=== PATIENT | female | born 1950 | race Caucasian/White ===

== ENCOUNTER 2020-02-29 12:09 | Inpatient (IN) ==
[2020-02-29] MEDS ORDERED: MORPHINE SULFATE 2 MG/ML DISP.SYRIN IV ONE (12:12)
[2020-02-29] MEDS ORDERED: ONDANSETRON HCL/PF 2 MG/ML VIAL IV ONE (12:12)
[2020-02-29] MEDS ORDERED: MORPHINE SULFATE 4 MG/ML SYRG IV ONE (13:17)
--- NOTE | 2020-02-29 13:18 | ERNOTE ---
Lower Extremity HPI - Narrative Date of Service: 02/29/20 - General Lower Extremities Pain: hip: left Time Seen by Provider: 02/29/20 12:12 Source: patient Exam Limitations: no limitations - Immun/Allergies/Home Medications Immunizations: IMMUNIZATION HX Immunizations Up to Date Yes History of Influenza Vaccine Yes Hx Pneumococcal Vaccination Yes Allergies/Adverse Reactions: Allergies Allergy/AdvReac Type Severity Reaction Status Date / Time No Known Allergies Allergy Unverified 02/29/20 12:17 Home Medications: HOME MEDICATIONS Albuterol Sulfate [Albuterol Sulfate Hfa] 8.5 gm INHALATION PRN PRN 02/29/20 [Last Taken Unknown] Aspirin 81 mg PO DAILY 02/29/20 [Last Taken Unknown] Cyanocobalamin [Vitamin B-12] 1,000 mcg IJ . MONTHLY 02/29/20 [Last Taken Unknown] Denosumab [Prolia] 60 mg SQ .6 MONTHS 02/29/20 [Last Taken Unknown] Exenatide [Byetta] 10 mcg SQ BID 02/29/20 [Last Taken Unknown] Fexofenadine HCl [Avril Allergy] 180 mg PO DAILY 02/29/20 [Last Taken Unknown] Losartan Potassium 100 mg PO DAILY 02/29/20 [Last Taken Unknown] Magnesium Oxide [Magnesium] 500 mg PO DAILY 02/29/20 [Last Taken Unknown] Montelukast Sodium [Singulair] 10 mg PO DAILY 02/29/20 [Last Taken Unknown] Naproxen Sodium 220 mg PO BID 02/29/20 [Last Taken Unknown] metFORMIN HCL [Metformin HCl ER] 750 mg PO DAILY 02/29/20 [Last Taken Unknown] - Pain Score Pain Score #1 Pain Score: 9 - History of Present Illness Narrative: The patient is a 69 year old female who presents for left hip pain which has been present since just [employer]. There are no associated symptoms. The patient reports pain to left hip, 05/24. There are alleviating factors of immobilization. There are aggravating factors of movement or weight bearing. Previous treatments have included: none. The past medical history includes: seasonal asthma, DM and pernicious anemia. The social history is negative. The patient has had no known ill contacts. Patient states she is here visiting from [place] with a friend and was down at the [employer] sightseeing. Patient states she was on the [employer] [place] and attempted to step down off of car missing the curb and lost her balance falling on left hip and elbow. Patient denies striking head, LOC or neck pain. Patient brought in by [facility]. Review of Systems - Review of Systems Constitutional: Present: no symptoms reported. Absent: fever, chills, fatigue EYE: Present: no symptoms reported ENT: Present: no symptoms reported. Absent: ear pain, nasal drainage, sore throat Respiratory: Present: no symptoms reported. Absent: shortness of breath, cough Cardiology: Present: no symptoms reported. Absent: chest pain Gastrointestinal/Abdominal: Present: no symptoms reported. Absent: nausea, vomiting, diarrhea, abdominal pain Genitourinary: Present: no symptoms reported. Absent: dysuria Musculoskeletal: Present: joint pain. Absent: neck pain, joint swelling Skin: Present: no symptoms reported. Absent: rash Neurological: Present: no symptoms reported. Absent: headache, dizziness/light- headedness All Other Systems: All systems neg except as marked Medical History (Last Reviewed 02/29/20 @ 13:17 by SKYE Mueller) Hx of fracture of lower leg Pernicious anemia Seasonal asthma Type II diabetes mellitus Surgical History: Surgical History (Last Reviewed 02/29/20 @ 13:17 by SKYE Mueller) Hx of rotator cuff surgery Hx of total knee replacement Social History: (Last Reviewed 02/29/20 @ 13:17 by SKYE Mueller) Tobacco: Smoking Status: Never smoker Alcohol: alcohol intake: never Substance Use: substance use type: does not use Physical Exam - Physical Exam General Appearance: Present: wd/wn, alert, moderate distress Head Exam: Present: normal inspection, no evidence of injury Eye Exam: Normal inspection: bilateral, PERRL: bilateral, EOMI: bilateral Neck: Present: normal inspection, nontender, full range of motion Respiratory: Present: no respiratory distress, normal breath sounds, no accessory muscle use, chest nontender, lungs clear Cardiovascular/Chest: Present: regular rate, rhythm, no murmur, normal peripheral pulses Peripheral Pulses: N=norm/S=strong/W=weak/B=bound/A=absent: Dorsalis-pedis (L): Normal Gastrointestinal/Abdominal: Present: normal bowel sounds, nontender, no ndistended, soft, no organomegaly Extremity Exam: Present: normal range of motion - to left ankle and pain to left hip with movement of knee, normal ROM to left wrist, elbow and shoulder, no edema, pelvis stable, bony tenderness - proximal femur, lateral hip with palpation Neurological Exam: Present: alert, oriented, normal mood/affect, no motor/se nsory deficits Skin Exam: Present: normal color, warm/dry, other - abrasion noted to posterior elbow and anterior knee Progress - Date and Time Seen: Date and Time: 02/29/20 13:18 Images sent to Paul ALONZO via [facility], will admit to medicine and consult for surgery planned tomorrow. 02/29/20 13:24 Case discussed with and will admit to medicine for orthopedic clearance. Patient verbalized understanding of plan of care. 02/29/20 14:22 Labs and imaging reviewed with patient as well as plan of care, verbalized understanding. Patient inquiring regarding length of stay and instructed ortho will direct care following surgery. - Results and Orders Patient's Lab Results:: I have reviewed the patient's lab results. - Vital Signs Patient's Vital Signs:: I have reviewed the patient's vital signs. Vital Signs: Vital Signs 02/29/20 12:10 Temperature 37.0 C Pulse Rate 84 Respiratory Rate 20 Blood Pressure 146/61 O2 Sat by Pulse Oximetry 98 - EKG EKG #1 EKG: NSR EKG read: Reviewed by me EKG Comments: No acute ischemic change noted. Reviewed with . - X-Ray X-Ray #1 X-Ray: hip Interpretation: Reviewed by me X-ray Comments: IMPRESSION: COMMINUTED INTERTROCHANTERIC FRACTURES LEFT HIP WITH MINIMAL ANGULATION. Electronically signed by Daquan Rasmussen M.D.. X-Ray #2 X-Ray: chest Interpretation: Reviewed by me X-ray Comments: IMPRESSION: NO ACUTE CARDIAC PULMONARY DISEASE IDENTIFIED. Electronically signed by Daquan Rasmussen M.D.. - Progress/Reassessment Chief Complaint: Lower Extremity Pain/ Injury Departure Clinical Impression: Intertrochanteric fracture of left femur Qualifiers: Encounter type: initial encounter Fracture type: closed Fracture alignment: displaced Qualified Code(s): S72.142A - Displaced intertrochanteric fracture of left femur, initial encounter for closed fracture - Departure Disposition: Still a patient Condition: Stable
[2020-02-29] MEDS ORDERED: DIPHTH,PERTUSS(ACELL),TET VAC 0.5 ML VIAL IM ONE (13:19)
[2020-02-29 13:38] LABS: Hematocrit 36.1 % (37.0-47.0); Hemoglobin 11.7 gm/dL (12.5-16.0); Mean Cell Volume 92.6 fl (78-100); Mean Corpuscular Hgb Conc 32.4 g/dl (32-36); Mean Platelet Volume 8.9 fl (8-12.5); Neutrophil % 76.3 % (42-75.0); Platelet Count 259 K/mm3 (150-450); Red Cell Distribution Width 13.1 % (11.5-14.0); White Blood Count 9.2 K/mm3 (4.0-10.5)
[2020-02-29 14:09] LABS: Albumin * 4.1 gm/dl (3.4-5.0); Anion Gap 10.7 mmol/L (6.8-13.8); BUN/Creatinine Ratio 31.6 (9.0-21.6); Bilirubin, Total 0.3 mg/dL (0.0-1.1); Ca. Corrected For Albumin 9.5 mg/dL (8.4-10.2); Calcium * 9.9 mg/dL (7.9-10.9); Carbon Dioxide 27.4 mmol/L (24-32.6); Potassium 4.1 mmol/L (3.4-4.6); Total Protein 7.8 gm/dL (6.2-8.2)
--- NOTE | 2020-02-29 15:19 | HP ---
Chief Complaint - Chief Complaint Date of Service: 02/29/20 Time of Service: 14:53 Chief Complaint: Left hip pain History of Present Illness: 69-year-old female with a past medical history of seasonal asthma, type 2 diabetes mellitus, pernicious anemia, hyperlipidemia, hypertension presents status post fall with left hip pain. She was found to have a comminuted intertrochanteric fracture of the left hip. Orthopedic was consulted and will take her to the right operating room tomorrow. She denies chest pain, shortness of breath, abdominal pain, palpitations or dizziness. Medical History (Last Reviewed 02/29/20 @ 14:56 by Alberto Duvall RN) Hx of fracture of lower leg Pernicious anemia Seasonal asthma Type II diabetes mellitus Surgical History: Surgical History (Last Reviewed 02/29/20 @ 14:56 by Alberto Duvall RN) Hx of rotator cuff surgery Hx of total knee replacement Family History: Family History (Last Updated 02/29/20 @ 18:11 by Nadine Vidales MD) Other Family history non-contributory Social History: (Last Reviewed 02/29/20 @ 14:56 by Alberto Duvall RN) Tobacco: Smoking Status: Never smoker Alcohol: alcohol intake: never Substance Use: substance use type: does not use Review Of Systems (GEN) - Review of Systems Generalized/Overall Review: Absent: Fever EENTM: Absent: Mouth Pain Cardiac: Absent: Chest Pain Abdominal: Absent: Abdominal Pain Musculoskeletal: Present: Joint Pain - Left hip Misc: All systems neg except as marked Immunizations: IMMUNIZATION HX Immunizations Up to Date Yes History of Influenza Vaccine Yes Hx Pneumococcal Vaccination Yes Allergies/Adverse Reactions: Allergies Allergy/AdvReac Type Severity Reaction Status Date / Time No Known Allergies Allergy Unverified 02/29/20 12:17 Home Medications: HOME MEDICATIONS Acetaminophen [Tylenol] 1,000 mg PO Q6H PRN 02/29/20 [Last Taken Unknown] Albuterol Sulfate [Albuterol Sulfate Hfa] 8.5 gm INHALATION PRN PRN 02/29/20 [Last Taken Unknown] Aspirin 81 mg PO DAILY 02/29/20 [Last Taken Unknown] Cyanocobalamin [Vitamin B-12] 1,000 mcg IJ . MONTHLY 02/29/20 [Last Taken Unknown] Denosumab [Prolia] 60 mg SQ .6 MONTHS 02/29/20 [Last Taken Unknown] Exenatide [Byetta] 10 mcg SQ BID 02/29/20 [Last Taken Unknown] Fexofenadine HCl [Avril Allergy] 180 mg PO 199902/29/20 [Last Taken Unknown] Losartan Potassium 100 mg PO 199902/29/20 [Last Taken Unknown] Magnesium Oxide [Magnesium] 500 mg PO 199902/29/20 [Last Taken Unknown] Montelukast Sodium [Singulair] 10 mg PO DAILY 02/29/20 [Last Taken Unknown] metFORMIN HCL [Metformin HCl ER] 750 mg PO 199902/29/20 [Last Taken Unknown] Exam - Exam Vital Signs: Vital Signs - Last Taken Temp 37.3 C 02/29/20 14:42 Pulse 87 02/29/20 14:42 Resp 16 02/29/20 14:42 BP 151/51 H 02/29/20 14:42 Pulse Ox 94 02/29/20 14:42 Constitutional: Present: Alert, Cooperative, Well developed, Well nourished, Elderly ENT Exam: Present: hearing grossly normal, moist mucous membranes Eye Exam: bilateral eye: normal inspection, PERRL, EOMI Neck: Present: non-tender, supple. Absent: lymphadenopathy (R), lymphadenopathy (L) Respiratory: Present: lungs clear, no respiratory distress, no accessory muscle use, No wheezing. Absent: crackles, rhonchi Cardiovascular/Chest: Present: normal peripheral pulses, regular rate, rhythm, no edema, no murmur Peripheral Pulses: dorsalis-pedis (R): 1+, dorsalis-pedis (L): 1+ Abdomen: Present: Normal bowel sounds, soft, nontender /Rectal: Present: Other - Alarcon in place Extremity: Present: non-tender, no pedal edema, other - Left hip externally rotated Skin Exam: Present: normal color, warm/dry Neurologic: Present: alert, normal mood/affect Appearance: Present: appropriate appearance, appropriate insight Eye contact: Present: cooperative, good eye contact Thoughts: Present: normal thought pattern, normal mood /affect Diagnostic Studies: Abnormal Lab Results 02/29/20 02/29/20 Range/Units 13:35 13:35 RBC 3.90 L (4.2-5.4) M/mm3 Hgb 11.7 L (12.5-16.0) gm/dL Hct 36.1 L (37.0-47.0) % Immature Gran % (Auto) 0.70 H (0.001-0.429) % Immature Gran # (Auto) 0.06 H (0.000-0.0310) K/mm3 Neutrophils % 76.3 H (42-75.0) % Lymphocytes % 16.6 L (20-51) % Neutrophils # 7.0 H (1.3-6.0) K/mm3 BUN 30 H (3-23) mg/dL BUN/Creatinine Ratio 31.6 H (9.0-21.6) Random Glucose 124 H (70-110) mg/dL Laboratory Results WBC 9.2 K/mm3 (4.0-10.5) 02/29/20 13:35 RBC 3.90 M/mm3 (4.2-5.4) L 02/29/20 13:35 Hgb 11.7 gm/dL (12.5-16.0) L 02/29/20 13:35 Hct 36.1 % (37.0-47.0) L 02/29/20 13:35 MCV 92.6 fl (78-100) 02/29/20 13:35 MCH 30.0 pg (27-31) 02/29/20 13:35 MCHC 32.4 g/dl (32-36) 02/29/20 13:35 RDW 13.1 % (11.5-14.0) 02/29/20 13:35 Plt Count 259 K/mm3 (150-450) 02/29/20 13:35 MPV 8.9 fl (8-12.5) 02/29/20 13:35 Immature Gran % (Auto) 0.70 % (0.001-0.429) H 02/29/20 13:35 Immature Gran # (Auto) 0.06 K/mm3 (0.000-0.0310) H 02/29/20 13:35 Neutrophils % 76.3 % (42-75.0) H 02/29/20 13:35 Lymphocytes % 16.6 % (20-51) L 02/29/20 13:35 Monocytes % 5.8 % (0.0-9) 02/29/20 13:35 Eosinophils % 0.3 % (0.0-3.0) 02/29/20 13:35 Basophils % 0.3 % (0.0-1.0) 02/29/20 13:35 Nucleated RBC % 0.0 k/mm3 (0-1) 02/29/20 13:35 Neutrophils # 7.0 K/mm3 (1.3-6.0) H 02/29/20 13:35 Lymphocytes # 1.52 k/mm3 (1.5-3.5) 02/29/20 13:35 Monocytes # 0.5 k/mm3 (0.0-1.0) 02/29/20 13:35 Eosinophils # 0.0 k/mm3 (0.0-0.7) 02/29/20 13:35 Absolute Basophils 0.0 k/mm3 (0.0-0.1) 02/29/20 13:35 Sodium 139 mmol/L (132-142) 02/29/20 13:35 Plasma Sodium 139 mmol/L (130-142) 02/29/20 13:35 Potassium 4.1 mmol/L (3.4-4.6) 02/29/20 13:35 Chloride 105 mmol/L (97-106) 02/29/20 13:35 Carbon Dioxide 27.4 mmol/L (24-32.6) 02/29/20 13:35 Anion Gap 10.7 mmol/L (6.8-13.8) 02/29/20 13:35 BUN 30 mg/dL (3-23) H 02/29/20 13:35 Creatinine 0.95 mg/dL (0.4-1.4) 02/29/20 13:35 Est GFR (Non-Af Amer) 62 mL/min (60-130) 02/29/20 13:35 BUN/Creatinine Ratio 31.6 (9.0-21.6) H 02/29/20 13:35 Random Glucose 124 mg/dL (70-110) H 02/29/20 13:35 Calcium 9.9 mg/dL (7.9-10.9) 02/29/20 13:35 Calcium Adj for Albumin 9.5 mg/dL (8.4-10.2) 02/29/20 13:35 Total Bilirubin 0.3 mg/dL (0.0-1.1) 02/29/20 13:35 AST 27 U/L (0-48) 02/29/20 13:35 ALT 26 U/L (19-67) 02/29/20 13:35 Alkaline Phosphatase 60 U/L (50-170) 02/29/20 13:35 Total Protein 7.8 gm/dL (6.2-8.2) 02/29/20 13:35 Albumin 4.1 gm/dl (3.4-5.0) 02/29/20 13:35 Assessment/Plan - Narrative Narrative: 69-year-old female with a past medical history of seasonal asthma, type 2 diabetes mellitus, pernicious anemia, hyperlipidemia, hypertension presents status post fall with left hip pain. She was found to have a comminuted intertrochanteric fracture of the left hip. Orthopedic was consulted and will take her to the right operating room tomorrow. She denies chest pain, shortness of breath, abdominal pain, palpitations or dizziness. Patient is medically cleared for the left hip repair. Plan #1 continue with pain management #2 CBC and CMP in the morning #3 Hold morning meds except for her blood pressure medication if she takes it in the morning #4 n.p.o. after midnight - Assessment/Plan (1) Intertrochanteric fracture of left femur Problem: Acute Qualifiers: Encounter type: initial encounter Fracture type: closed Fracture alig nment: displaced Qualified Code(s): S72.142A - Displaced intertrochanteric fracture of left femur, initial encounter for closed fracture (2) Diabetes mellitus type 2 in nonobese Problem: Chronic (3) Hypertension Problem: Chronic (4) Hyperlipidemia Problem: Chronic (5) Asthma Problem: Chronic
[2020-02-29] MEDS: MORPHINE SULFATE 4 MG/ML SYRG IV PRN ×2 (16:27→21:37)
[2020-02-29] MEDS ORDERED: ALBUTEROL SULFATE 2.5 MG/0.5 ML VIAL.NEB IH PRN (19:15)
[2020-02-29] MEDS: EXENATIDE 10 MCG SC SCH (19:42)
[2020-02-29] MEDS ORDERED: LORATADINE 10 MG TABLET PO SCH (20:00)
[2020-02-29] MEDS ORDERED: metFORMIN HCL 750 MG TAB.SR.24H PO SCH (20:00)
[2020-02-29] MEDS ORDERED: LOSARTAN POTASSIUM 50 MG TABLET PO SCH (20:00)
[2020-03-01] MEDS: MORPHINE SULFATE 4 MG/ML SYRG IV PRN ×3 (03:00→10:02)
[2020-03-01] MEDS ORDERED: ALBUTEROL SULFATE 2.5 MG/0.5 ML VIAL.NEB IH PRN (06:30)
[2020-03-01 06:47] LABS: Hemoglobin 11.5 gm/dL (12.5-16.0); Mean Cell Volume 91.1 fl (78-100); Mean Corpuscular Hemoglobin 29.9 pg (27-31); Mean Corpuscular Hgb Conc 32.9 g/dl (32-36); Mean Platelet Volume 8.8 fl (8-12.5); Neutrophil # 5.9 K/mm3 (1.3-6.0); Neutrophil % 68.6 % (42-75.0); Platelet Count 239 K/mm3 (150-450); Red Blood Count 3.84 M/mm3 (4.2-5.4); Red Cell Distribution Width 12.9 % (11.5-14.0); White Blood Count 8.6 K/mm3 (4.0-10.5)
[2020-03-01 07:03] LABS: Albumin * 3.7 gm/dl (3.4-5.0); Anion Gap 11.8 mmol/L (6.8-13.8); BUN/Creatinine Ratio 21.8 (9.0-21.6); Bilirubin, Total 0.7 mg/dL (0.0-1.1); Ca. Corrected For Albumin 8.9 mg/dL (8.4-10.2); Potassium 3.8 mmol/L (3.4-4.6); Total Protein 7.3 gm/dL (6.2-8.2)
[2020-03-01] MEDS: EXENATIDE 10 MCG SC SCH ×2 (07:23→16:21)
--- NOTE | 2020-03-01 08:07 | CONS ---
- Reason for consultation (1) Intertrochanteric fracture of left femur Date of Service: 03/01/20 HPI - General Date of Service: 03/01/20 Narrative: Miranda reports that she was down from [place] on a day trip when she fell missing a step on train. She reports left hip and thigh discomfort. She reports no pain in the knee or below her left side. The only other injuries that she complains of is that her left shoulder is a little sore and some abrasions on her left forearm. She has a history of a knee replacement on the left side but reports it feels fine and does not feel she injured it. She reports she had a right-sided rotator cuff repair in July 2019 that she is recovering from without difficulty. - History of Present Illness Timing/Duration: 24 hours Allergies/Adverse Reactions: Allergies No Known Allergies Allergy (Unverified 02/29/20 12:17) Home Medications: Home Medications Medication Instructions Recorded Last Taken Acetaminophen [Tylenol] 1,000 mg PO Q6H PRN 02/29/20 Unknown Albuterol Sulfate [Albuterol 8.5 gm INHALATION PRN PRN 02/29/20 Unknown Sulfate Hfa] Aspirin 81 mg PO DAILY 02/29/20 Unknown Cyanocobalamin [Vitamin B-12] 1,000 mcg IJ . MONTHLY 02/29/20 Unknown Denosumab [Prolia] 60 mg SQ .6 MONTHS 02/29/20 Unknown Exenatide [Byetta] 10 mcg SQ BID 02/29/20 Unknown Fexofenadine HCl [Avril Allergy] 180 mg PO 199902/29/20 Unknown Losartan Potassium 100 mg PO 199902/29/20 Unknown Magnesium Oxide [Magnesium] 500 mg PO 199902/29/20 Unknown Montelukast Sodium [Singulair] 10 mg PO DAILY 02/29/20 Unknown metFORMIN HCL [Metformin HCl ER] 750 mg PO 199902/29/20 Unknown Medications - Medications Current Medications: Current Medications Morphine Sulfate (Morphine Sulfate) 4 mg IV Q3H PRN PRN Reason: Pain Stop: 03/30/20 16:06 Last Admin: 03/01/20 06:57 Dose: 4 mg Documented by: Patient's Own Medication(Exenatide [Byetta] 10 Mcg) 0 dose SC BIDAC MAVIS Stop: 03/30/20 19:16 Last Admin: 03/01/20 07:23 Dose: Not Given Documented by: Physical Examination - Exam Narrative: Left leg is shortened and externally rotated. She reports sensation intact to touch in the left lower extremity. She is able to plantarflex and dorsiflex her left ankle. 2+ dorsalis pedis pulse. She reports no pain with palpation left knee. She reports discomfort in the inguinal area with palpation. She has discomfort with left leg logroll. X-rays reviewed showed minimally displaced intertrochanteric left hip fracture. Examination of left shoulder she can actively forward flex to 120 degrees. She can actively externally rotate 70 degrees. She reports that sore with range of motion. With palpation she reports no significant discomfort. Right shoulder she can actively forward flex 220 degrees with minimal discomfort. Labs and vital signs reviewed. Vital Signs: Vital Signs - Last Taken Temp 37.4 C 03/01/20 06:00 Pulse 85 03/01/20 06:00 Resp 16 03/01/20 06:00 BP 124/58 03/01/20 06:00 Pulse Ox 94 03/01/20 06:00 O2 Oxygen Delivery Method Room Air Constitutional: Present: Alert, Oriented x3, Cooperative, No distress - Results and Findings: Lab/Microbiology results last 24 hrs: Abnormal/Pending Laboratory Last 24 HRS 03/01/20 03/01/20 02/29/20 06:40 06:40 13:35 RBC 3.84 L Hgb 11.5 L Hct 35.0 L Immature Gran % (Auto) 0.50 H Immature Gran # (Auto) 0.04 H Neutrophils % Lymphocytes % Neutrophils # BUN 30 H BUN/Creatinine Ratio 21.8 H 31.6 H Random Glucose 144 H 124 H AST 73 H ALT 81 H 02/29/20 13:35 RBC 3.90 L Hgb 11.7 L Hct 36.1 L Immature Gran % (Auto) 0.70 H Immature Gran # (Auto) 0.06 H Neutrophils % 76.3 H Lymphocytes % 16.6 L Neutrophils # 7.0 H BUN BUN/Creatinine Ratio Random Glucose AST ALT - Assessments/Findings (1) Intertrochanteric fracture of left femur Diagnosis(s): Patient is to remain n.p.o. Plan is to proceed with closed reduction cephalo- medullary internal fixation of left intertrochanteric hip fracture. Risks of surgery discussed in detail with patient. Consents obtained this morning. Plan is to proceed with this this afternoon. Recovery time frame discussed in detail with patient as well. Problem: Acute Qualifiers: Encounter type: initial encounter Fracture type: closed Fracture alignment: displaced Qualified Code(s): S72.142A - Displaced intertrochanteric fracture of left femur, initial encounter for closed fracture (2) Diabetes mellitus type 2 in nonobese Problem: Chronic (3) Hypertension Problem: Chronic (4) Hyperlipidemia Problem: Chronic (5) Asthma Problem: Chronic
[2020-03-01] MEDS: MONTELUKAST SODIUM 10 MG TABLET PO SCH (08:23)
[2020-03-01] MEDS: RINGER'S SOLUTION,LACTATED 1,000 ML IV PRN ×4 (08:23→19:50)
--- NOTE | 2020-03-01 08:58 | ANES ---
Anesthesia Pre Procedure Eval Vitals/Labs: Last Vital Signs Temp 37.4 C 03/01/20 06:00 Pulse 85 03/01/20 06:00 Resp 16 03/01/20 06:00 BP 124/58 03/01/20 06:00 Pulse Ox 94 03/01/20 06:00 HOME MEDICATIONS Acetaminophen [Tylenol] 1,000 mg PO Q6H PRN 02/29/20 [Last Taken Unknown] Albuterol Sulfate [Albuterol Sulfate Hfa] 8.5 gm INHALATION PRN PRN 02/29/20 [Last Taken Unknown] Aspirin 81 mg PO DAILY 02/29/20 [Last Taken Unknown] Cyanocobalamin [Vitamin B-12] 1,000 mcg IJ . MONTHLY 02/29/20 [Last Taken Unknown] Denosumab [Prolia] 60 mg SQ .6 MONTHS 02/29/20 [Last Taken Unknown] Exenatide [Byetta] 10 mcg SQ BID 02/29/20 [Last Taken Unknown] Fexofenadine HCl [Avril Allergy] 180 mg PO 199902/29/20 [Last Taken Unknown] Losartan Potassium 100 mg PO 199902/29/20 [Last Taken Unknown] Magnesium Oxide [Magnesium] 500 mg PO 199902/29/20 [Last Taken Unknown] Montelukast Sodium [Singulair] 10 mg PO DAILY 02/29/20 [Last Taken Unknown] metFORMIN HCL [Metformin HCl ER] 750 mg PO 199902/29/20 [Last Taken Unknown] Allergies/Adverse Reactions: Allergies Allergy/AdvReac Type Severity Reaction Status Date / Time No Known Allergies Allergy Unverified 02/29/20 12:17 - Planned Procedure Planned Procedure: ORIF left hip Medication List Reviewed:: Yes Allergies Verified: Yes Medical History (Last Reviewed 03/01/20 @ 08:57 by Rock Drake CRNA) Hx of fracture of lower leg Pernicious anemia Seasonal asthma Type II diabetes mellitus Surgical History (Last Reviewed 03/01/20 @ 08:57 by Rock Drake CRNA) Hx of rotator cuff surgery Hx of total knee replacement Family History (Last Reviewed 03/01/20 @ 08:57 by Rock Drake CRNA) Other Family history non-contributory - Airway/Neck/Teeth Within Normal Limits:: Yes Teeth Condition: intact Denture Type: Perm crown/bridge Mallampatti Score: 2 Thyromental (T-M) distance: > 6 cm Mandibulo Hyoid distance: > 3 cm - Respiratory Respiratory History: asthma Respiratory Physical: lungs clear Discussed smoking cessation including day of surgery: No Sleep Apnea currently treated: No Sleep Apnea by current assessment: No Discussed Risks/Treatment of DARBY: No - Cardiovascular Tolerate Activity: Good Heart Sounds: S1 & S2, Regular - Anesthesia Assessment and Plan ASA Class: PS, II Anesthesia Type Plan: Spinal
--- NOTE | 2020-03-01 09:36 | PN ---
Subjective - Date and Time Seen Date: 03/01/20 Time: 09:33 Subjective Narrative: She states she feels okay today and pain well controlled most of the time. She denies shortness of breath, chest pain or abdominal pain. Objective - Review of Systems Generalized/Overall Review: Denies: Fever Respiratory: Denies: Cough, Shortness of Breath Cardiac: Denies: Chest Pain Abdominal: Denies: Abdominal Pain Musculoskeletal Complaints: Reports: Joint Pain - Left hip Misc: All systems neg except as marked - Vitals Vitals: Last Vital Signs Temp 37.4 C 03/01/20 06:00 Pulse 85 03/01/20 06:00 Resp 16 03/01/20 06:00 BP 124/58 03/01/20 06:00 Pulse Ox 94 03/01/20 06:00 - Abnormal Lab Findings Abnormal Lab Findings: Abnormal Lab Results 02/29/20 02/29/20 03/01/20 Range/Units 13:35 13:35 06:40 RBC 3.90 L 3.84 L (4.2-5.4) M/mm3 Hgb 11.7 L 11.5 L (12.5-16.0) gm/dL Hct 36.1 L 35.0 L (37.0-47.0) % Immature Gran % (Auto) 0.70 H 0.50 H (0.001-0.429) % Immature Gran # (Auto) 0.06 H 0.04 H (0.000-0.0310) K/mm3 Neutrophils % 76.3 H (42-75.0) % Lymphocytes % 16.6 L (20-51) % Neutrophils # 7.0 H (1.3-6.0) K/mm3 BUN 30 H (3-23) mg/dL BUN/Creatinine Ratio 31.6 H (9.0-21.6) Random Glucose 124 H (70-110) mg/dL AST (0-48) U/L ALT (19-67) U/L 03/01/20 Range/Units 06:40 RBC (4.2-5.4) M/mm3 Hgb (12.5-16.0) gm/dL Hct (37.0-47.0) % Immature Gran % (Auto) (0.001-0.429) % Immature Gran # (Auto) (0.000-0.0310) K/mm3 Neutrophils % (42-75.0) % Lymphocytes % (20-51) % Neutrophils # (1.3-6.0) K/mm3 BUN (3-23) mg/dL BUN/Creatinine Ratio 21.8 H (9.0-21.6) Random Glucose 144 H (70-110) mg/dL AST 73 H (0-48) U/L ALT 81 H (19-67) U/L - Exam Constitutional: Present: Alert, Cooperative, Well developed, Well nourished, No distress, Elderly ENT Exam: Present: hearing grossly normal Neck: Present: non-tender, supple. Absent: lymphadenopathy (R), lymphadenopathy (L) Respiratory: Present: lungs clear, no accessory muscle use, No wheezing. Absent: crackles, rhonchi Cardiovascular/Chest: Present: normal peripheral pulses, regular rate, rhythm, no murmur Abdomen: Present: Normal bowel sounds, soft, nontender /Rectal: Present: Other - Alarcon in place Extremity: Present: no pedal edema Skin Exam: Present: normal color, warm/dry Neurologic: Present: alert, normal mood/affect Appearance: Present: appropriate appearance, appropriate insight Eye contact: Present: cooperative Thoughts: Present: normal thought pattern, normal mood /affect Cauti Physician Documentation - Urinary Catheter Management Urethral (Alarcon) Urethral Indwelling: Yes Reason for Continuing Indwelling Catheter: Other - Left hip fracture Date of Insertion: 02/29/20 Time of Insertion: 13:58 Assessment/Plan Plan Narrative: 69-year-old female with a past medical history of seasonal asthma, type 2 diabetes mellitus, pernicious anemia, hyperlipidemia, hypertension presents status post fall with left hip pain. She was found to have a comminuted intertrochanteric fracture of the left hip. Orthopedic was consulted and will take her to the right operating room tomorrow. She denies chest pain, shortness of breath, abdominal pain, palpitations or dizziness. She will go for the left hip repair today. Plan #1 continue with pain management #2 CBC and CMP in the morning #3 Resume her home medications tomorrow #4 n.p.o. until after the procedure - Problems/Diagnosis (1) Intertrochanteric fracture of left femur Problem: Acute Qualifiers: Encounter type: initial encounter Fracture type: closed Fracture alignment: displaced Qualified Code(s): S72.142A - Displaced intertrochanteric fracture of left femur, initial encounter for closed fracture (2) Diabetes mellitus type 2 in nonobese Problem: Chronic (3) Hypertension Problem: Chronic (4) Hyperlipidemia Problem: Chronic (5) Asthma Problem: Chronic
[2020-03-01] MEDS ORDERED: fentaNYL CITRATE/PF 50 MCG/ML AMPUL ONE (14:31)
[2020-03-01] MEDS ORDERED: MIDAZOLAM HCL/PF 1 MG/ML VIAL ONE (14:32)
[2020-03-01] MEDS ORDERED: BUPIVACAINE HCL/PF 10 ML VIAL ONE (14:32)
[2020-03-01] MEDS ORDERED: PROPOFOL VIAL IV ONE (14:32)
[2020-03-01] MEDS ORDERED: MAG HYDROX/ALUMINUM HYD/SIMETH 30 ML UDC PO PRN (16:53)
--- NOTE | 2020-03-01 16:53 | OR ---
Operative Report - Dictated Report Narrative: Date: 03/01/2020 Surgeon: Yoshi Oneill M.D. Coin Purse Assembler: Paul Carrasco PA-C (provided an essential set of skilled educated handset assisted with transfer, positioning, prepping, draping, placement of instruments, insertion of implants, irrigation, closure wounds, and placement of dressings all which could not be performed by the available surgical crew) Preoperative diagnosis: Left closed intertrochanteric femur fracture Postoperative diagnosis: Left closed intertrochanteric femur fracture Operations and procedures: 1. Closed reduction, cephalo-medullary fixation left intertrochanteric femur fracture 2. Intraoperative interpretation of radiographs Anesthesia: Spinal Specimens: None Estimated blood loss: 75 Milliliters Retained implants: [employer] Trigen InterTAN 130 degree size 11.5 mm by 18 centimeter nail with 95 millimeter lag screw and 90 millimeter compression screw, with distal locking screw Complications: None Indications for procedure: Mrs. Beltran is a 69-year-old female who injured the left leg after falling down a step. They were admitted to the hospital after being evaluated in the emergency department. Once the medical provider felt that they were stable for surgical treatment, the risks and benefits alternatives were discussed. The risks of , blood clots, bleeding, infection, nerve/tendon/blood vessel injury, malunion, nonunion, failure of implants, painful implants, arthrosis, and need for additional procedures were discussed. The extremity was marked and consent was obtained on the floor. Procedure: After marking the operative extremity on the floor, the patient was taken to the operating room. A timeout was performed. IV antibiotics consisting of Ancef were administered. A spinal anesthetic was induced by anesthesia, and the patient was then placed onto a fracture table with a well-padded perineal post. The nonoperative leg was placed in a well-padded traction boot in slight extension without any traction with an SCD on the leg. The operative leg was placed in a well-padded traction boot. Longitudinal traction, internal rotation, and flexion were utilized in order to reduce the fracture. Preliminary images were attained utilizing C-arm in both the AP and lateral views. This confirmed that we had obtained adequate visualization of the fracture as well as reduction. Next the hip was then prepped and draped in a standard sterile fashion. Next the guidewire was placed percutaneously proximal to the greater trochanter to twin a starting point at the tip of the greater trochanter centered on the lateral view. This was passed down to the level below the lesser trochanter. A scalpel was utilized in order to dissect down to the greater trochanter in order to place the soft tissue protector down to bone. The entry drill was then placed down the proximal femur to the level of the lesser trochanter. The proper size nail was then selected and impacted into place. On the initial attempt to place the nail it did not pass to an appropriate depth due to tightness within the canal. A series of reamers up to 13 mm was then utilized in order to prepare the canal. The nail was then replaced and set appropriately. The outrigger was utilized in order to confirm the appropriate depth of the nail. Using the alignment device on the outrigger, an incision was made over the lateral femur. Sharp dissection was carried through the iliotibial band down to the proximal femur. The guidewire was placed into the femoral head in a center- center position on AP and lateral views. The tip-apex distance of less than 25 mm combined was obtained. Once we felt that we had placed a guidewire in the appropriate position, it was measured. Next the compression screw site was drilled through the lateral femoral cortex. This was then drilled down to the appropriate depth, again confirming that we are within the confines the bone. The derotational bar was then placed and the lag screw was drilled. The lag screw was then secured in place seating fully ensuring that we were within the confines of the bone. The compression screw was then inserted allowing for compression while releasing the traction on the leg. Using C-arm this was visualized to allow for compression across the fracture site. Once is felt that we had adequately stabilized the intertrochanteric fracture, the distal interlocking screw was placed in a dynamic position. It was confirmed to be the appropriate length and within the nail on both AP and lateral views. The nail was secured allowing for controlled compression and the outrigger was removed. The wounds were then thoroughly irrigated. Final images were obtained. The hip was placed through range of motion and showed no crepitance. The deep fascia was closed with 0 Vicryl, the subcutaneous tissue with 3-0 Vicryl, and the skin was closed with jordan. Sterile dressings of Xeroform, 4 x 4, and tape were applied. All sponge, sharp, and instrument counts were correct prior to closing the wounds. The patient was then awoken and transferred to the postanesthesia care unit in stable condition.
--- NOTE | 2020-03-01 17:04 | ANES ---
Post Anesthesia Discharge - Transfer of Care Transfer of Care handoff given to nurse: Yes - Discharge from PACU Discharge from PACU when meets criteria: Yes - Awake and comfortable.
[2020-03-01 17:18] LABS: Prothrombin Time (Patient) 10.4 Seconds (9.1-10.7)
[2020-03-01 17:19] LABS: INR 1.05 INR (0.92-1.08)
--- NOTE | 2020-03-01 17:26 | ANES ---
Post Anesthesia Assessment - Vital Signs Vitals: Last Vital Signs Temp 37.2 C 03/01/20 17:20 Pulse 98 03/01/20 17:20 Resp 14 03/01/20 17:20 BP 115/82 03/01/20 17:20 Pulse Ox 96 03/01/20 17:20 Airway Patency: Normal - Mental Status Level Of Consciousness: Awake, Alert, Appropriate - Pain Level Pain Score: 0 - N/V Assessment Nausea/Vomiting Presence: None Dehydration:: No
[2020-03-01] MEDS: WARFARIN SODIUM 5 MG TABLET PO SCH (17:47)
[2020-03-01] MEDS ORDERED: ONDANSETRON HCL/PF 2 MG/ML VIAL IV PRN (18:36)
[2020-03-01] MEDS: ceFAZolin SODIUM 1 GM in DEXTROSE 5 % IN WATER 100 ML IV SCH ×2 (19:47)
[2020-03-01] MEDS: LORATADINE 10 MG TABLET PO SCH (19:48)
[2020-03-01] MEDS: LOSARTAN POTASSIUM 50 MG TABLET PO SCH (19:48)
[2020-03-01] MEDS: metFORMIN HCL 750 MG TAB.SR.24H PO SCH (19:50)
[2020-03-01] MEDS: MAGNESIUM OXIDE 400 MG TABLET PO SCH (19:50)
[2020-03-01] MEDS: SENNOSIDES/DOCUSATE SODIUM 1 TAB TABLET PO SCH (20:08)
[2020-03-01] MEDS: HYDROcodone/ACETAMINOPHEN 1 EACH TABLET PO PRN (21:01)
[2020-03-01] MEDS: ACETAMINOPHEN 500 MG TABLET PO PRN (23:13)
[2020-03-02] MEDS: ceFAZolin SODIUM 1 GM in DEXTROSE 5 % IN WATER 100 ML IV SCH ×4 (00:03→07:25)
[2020-03-02] MEDS: HYDROcodone/ACETAMINOPHEN 1 EACH TABLET PO PRN ×5 (04:19→23:46)
[2020-03-02] MEDS ORDERED: ceFAZolin SODIUM 1 GM VIAL IV PRN (06:00)
[2020-03-02 07:05] LABS: Hematocrit 24.7 % (37.0-47.0); Hemoglobin 8.1 gm/dL (12.5-16.0); Mean Cell Volume 93.9 fl (78-100); Mean Corpuscular Hemoglobin 30.8 pg (27-31); Mean Corpuscular Hgb Conc 32.8 g/dl (32-36); Mean Platelet Volume 9.8 fl (8-12.5); Platelet Count 133 K/mm3 (150-450); Red Blood Count 2.63 M/mm3 (4.2-5.4); Red Cell Distribution Width 12.9 % (11.5-14.0); White Blood Count 7.3 K/mm3 (4.0-10.5)
[2020-03-02 07:13] LABS: Prothrombin Time (Patient) 12.8 Seconds (9.1-10.7)
[2020-03-02 07:15] LABS: Anion Gap 11.1 mmol/L (6.8-13.8); BUN/Creatinine Ratio 18.8 (9.0-21.6); Calcium * 8.1 mg/dL (7.9-10.9); Carbon Dioxide 28.9 mmol/L (24-32.6); Estimated Creat Clear 53.9; INR 1.31 INR (0.92-1.08)
[2020-03-02] MEDS: EXENATIDE 10 MCG SC SCH ×2 (07:29→16:46)
[2020-03-02] MEDS: MONTELUKAST SODIUM 10 MG TABLET PO SCH (09:23)
--- NOTE | 2020-03-02 11:16 | PN ---
Subjective - Date and Time Seen Date: 03/02/20 Time: 11:14 Subjective Narrative: Subjective: Reports some difficulty with ambulation. Was able to walk in the room with therapy. Pain is well-controlled. Voiding without any complications. Tolerating by mouth intake. Denies any nausea or vomiting. Denies calf pain. Slept well. Physical exam: Alert and oriented to person, place and time Left lower extremity: Palpable dorsalis pedis pulse. Sensation grossly intact to light touch. Dressings clean and dry. Able to flex and extend ankle and toes. No excessive drainage. Calf and thigh are soft and nontender. Assessment: Postop day 1 status post left hip cephalo-medullary nail for intertrochanteric femur fracture. Plan: Continue with physical and occupational therapy weightbearing as tolerated. Continue with anticoagulation -she will need 6 weeks of DVT prophylaxis. 24 hours postoperative prophylactic antibiotics. Pain control with goal to rely on oral medications. Continue bowel regimen. Will need 6 weeks with walker or assitive device to protect joint while ambulating during the recovery process. Discharge planning -okay to transfer to nursing facility once medically stable. Per her request she wants to follow-up with a local doctor near her home. I instructed her she should be seen approximately 2 weeks after discharge. Objective - Vitals Vitals: Last Vital Signs Temp 36.9 C 03/02/20 10:35 Pulse 92 03/02/20 10:35 Resp 20 03/02/20 10:35 BP 142/52 03/02/20 10:35 Pulse Ox 98 03/02/20 10:35 - Abnormal Lab Findings Abnormal Lab Findings: Abnormal Lab Results 03/02/20 03/02/20 03/02/20 Range/Units 06:00 06:30 06:30 RBC 2.63 L (4.2-5.4) M/mm3 Hgb 8.1 L (12.5-16.0) gm/dL Hct 24.7 L (37.0-47.0) % Plt Count 133 L (150-450) K/mm3 PT 12.8 H (9.1-10.7) Seconds INR (Anticoag Therapy) 1.31 H (0.92-1.08) INR Random Glucose 145 H (70-110) mg/dL Cauti Physician Documentation - Urinary Catheter Management Urethral (Alarcon) Urethral Indwelling: Yes Date of Insertion: 03/01/20 Time of Insertion: 13:58 Assessment/Plan - Problems/Diagnosis (1) Intertrochanteric fracture of left femur Problem: Acute Qualifiers: Encounter type: subsequent encounter Fracture type: closed Fracture alignment: displaced Fracture healing: with routine healing Qualified Code(s): S72.142D - Displaced intertrochanteric fracture of left femur, subsequent encounter for closed fracture with routine healing
--- NOTE | 2020-03-02 11:48 | PN ---
Subjective - Date and Time Seen Date: 03/02/20 Time: 08:52 Subjective Narrative: She ambulated with physical therapy and complained of left hip pain. Otherwise she is doing well. She has passed gas but no bowel movement, she is urinating well. She is tolerating her diet. Objective - Review of Systems Generalized/Overall Review: Denies: Fever Respiratory: Denies: Shortness of Breath Cardiac: Denies: Chest Pain Abdominal: Denies: Abdominal Pain Musculoskeletal Complaints: Reports: Joint Pain - Left hip Misc: All systems neg except as marked - Vitals Vitals: Last Vital Signs Temp 36.9 C 03/02/20 10:35 Pulse 92 03/02/20 10:35 Resp 20 03/02/20 10:35 BP 142/52 03/02/20 10:35 Pulse Ox 98 03/02/20 10:35 - Abnormal Lab Findings Abnormal Lab Findings: Abnormal Lab Results 03/02/20 03/02/20 03/02/20 Range/Units 06:00 06:30 06:30 RBC 2.63 L (4.2-5.4) M/mm3 Hgb 8.1 L (12.5-16.0) gm/dL Hct 24.7 L (37.0-47.0) % Plt Count 133 L (150-450) K/mm3 PT 12.8 H (9.1-10.7) Seconds INR (Anticoag Therapy) 1.31 H (0.92-1.08) INR Random Glucose 145 H (70-110) mg/dL - Exam Constitutional: Present: Alert, Oriented x3, Cooperative, Well developed, Well nourished, No distress ENT Exam: Present: hearing grossly normal Neck: Present: non-tender, supple. Absent: lymphadenopathy (R), lymphadenopathy (L) Respiratory: Present: lungs clear, no respiratory distress, no accessory muscle use, No wheezing. Absent: crackles, rhonchi Cardiovascular/Chest: Present: normal peripheral pulses, regular rate, rhythm, no edema, no murmur Abdomen: Present: Normal bowel sounds, soft, nontender Extremity: Present: no pedal edema Skin Exam: Present: normal color, warm/dry Neurologic: Present: alert, normal mood/affect Appearance: Present: appropriate appearance, appropriate insight Eye contact: Present: cooperative Thoughts: Present: normal thought pattern, normal mood /affect Cauti Physician Documentation - Urinary Catheter Management Urethral (Alarcon) Urethral Indwelling: Yes Date of Insertion: 03/01/20 Time of Insertion: 13:58 Assessment/Plan Plan Narrative: 69-year-old female with a past medical history of seasonal asthma, type 2 diabetes mellitus, pernicious anemia, hyperlipidemia, hypertension presents status post fall with left hip pain. She was found to have a comminuted intertrochanteric fracture of the left hip. Orthopedic was consulted and will take her to the right operating room tomorrow. She denies chest pain, shortness of breath, abdominal pain, palpitations or dizziness. She is status post closed reduction, cephalo-medullary fixation of her left intertrochanteric femur. She will need to continue with DVT prophylaxis with anticoagulation for 6 weeks. She will need inpatient rehab and we are in the process of looking for placement. Plan #1 continue with pain management with [place] #2 CBC and CMP in the morning #3 Resume her home medications #4 continue with warfarin (bridging with Lovenox) for DVT prophylaxis for 6 weeks - Problems/Diagnosis (1) Intertrochanteric fracture of left femur Problem: Acute Qualifiers: Encounter type: subsequent encounter Fracture type: closed Fracture alignment: displaced Fracture healing: with routine healing Qualified Code(s): S72.142D - Displaced intertrochanteric fracture of left femur, subsequent encounter for closed fracture with routine healing (2) Diabetes mellitus type 2 in nonobese Problem: Chronic (3) Hypertension Problem: Chronic (4) Hyperlipidemia Problem: Chronic (5) Asthma Problem: Chronic
[2020-03-02] MEDS: ENOXAPARIN SODIUM 40 MG/0.4 ML SYRG SC SCH (16:27)
[2020-03-02] MEDS: WARFARIN SODIUM 5 MG TABLET PO SCH (16:30)
[2020-03-02] MEDS: MAGNESIUM HYDROXIDE 30 ML UDC PO PRN (16:36)
[2020-03-02] MEDS: ACETAMINOPHEN 500 MG TABLET PO PRN (20:33)
[2020-03-02] MEDS: LOSARTAN POTASSIUM 50 MG TABLET PO SCH (20:33)
[2020-03-02] MEDS: LORATADINE 10 MG TABLET PO SCH (20:33)
[2020-03-02] MEDS: metFORMIN HCL 750 MG TAB.SR.24H PO SCH (20:34)
[2020-03-02] MEDS: MAGNESIUM OXIDE 400 MG TABLET PO SCH (20:34)
[2020-03-02] MEDS: SENNOSIDES/DOCUSATE SODIUM 1 TAB TABLET PO SCH (20:34)
[2020-03-03 06:25] LABS: Mean Corpuscular Hemoglobin 30.2 pg (27-31); Mean Corpuscular Hgb Conc 33.2 g/dl (32-36); Mean Platelet Volume 9.3 fl (8-12.5); Neutrophil % 70.5 % (42-75.0); Platelet Count 145 K/mm3 (150-450); Red Blood Count 2.22 M/mm3 (4.2-5.4); Red Cell Distribution Width 13.1 % (11.5-14.0)
[2020-03-03 06:27] LABS: Hematocrit 20.2 % (37.0-47.0); Hemoglobin 6.7 gm/dL (12.5-16.0)
[2020-03-03 06:28] LABS: Prothrombin Time (Patient) 21.3 Seconds (9.1-10.7)
[2020-03-03 06:30] LABS: INR 2.22 INR (0.92-1.08)
[2020-03-03 06:36] LABS: Albumin * 2.9 gm/dl (3.4-5.0); BUN/Creatinine Ratio 18.6 (9.0-21.6); Bilirubin, Total 0.4 mg/dL (0.0-1.1); Calcium * 8.4 mg/dL (7.9-10.9); Total Protein 6.4 gm/dL (6.2-8.2)
[2020-03-03] MEDS: HYDROcodone/ACETAMINOPHEN 1 EACH TABLET PO PRN ×4 (07:04→20:40)
[2020-03-03] MEDS: EXENATIDE 10 MCG SC SCH ×2 (07:05→17:02)
[2020-03-03] MEDS: MONTELUKAST SODIUM 10 MG TABLET PO SCH (08:55)
[2020-03-03 12:15] LABS: Mean Cell Volume 91.7 fl (78-100); Mean Corpuscular Hemoglobin 30.6 pg (27-31); Mean Corpuscular Hgb Conc 33.3 g/dl (32-36); Mean Platelet Volume 9.7 fl (8-12.5); Platelet Count 148 K/mm3 (150-450); Red Blood Count 2.16 M/mm3 (4.2-5.4); Red Cell Distribution Width 12.9 % (11.5-14.0); White Blood Count 7.5 K/mm3 (4.0-10.5)
[2020-03-03 12:18] LABS: Hemoglobin 6.6 gm/dL (12.5-16.0)
[2020-03-03 12:19] LABS: Hematocrit 19.8 % (37.0-47.0)
--- NOTE | 2020-03-03 12:20 | PN ---
Subjective - Date and Time Seen Date: 03/03/20 Time: 12:19 Subjective Narrative: Subjective: Reports some difficulty with ambulation although she is able to take some steps around the bed at this point. She does have some pain which is tolerable when sedentary but becomes worse when ambulating. Voiding without any complications. Tolerating by mouth intake. Denies any nausea or vomiting. Denies calf pain. Slept well. Physical exam: Alert and oriented to person, place and time Left lower extremity: Palpable dorsalis pedis pulse. Sensation grossly intact to light touch. Dressings clean and dry. Able to flex and extend ankle and toes. No excessive drainage. Calf and thigh are soft and nontender. Assessment: Postop day 2 status post left hip cephalo-medullary nail for intertrochanteric femur fracture. Plan: Continue with physical and occupational therapy weightbearing as tolerated. Continue with anticoagulation -she will need 6 weeks of DVT prophylaxis. Pain control with goal to rely on oral medications -I will adjust these today in order to try to get better pain control without oversedation. Continue bowel regimen. Will need 6 weeks with walker or assitive device to protect joint while ambulating during the recovery process. Discharge planning -okay to transfer to nursing facility once medically stable. Per her request she wants to follow-up with a local doctor near her home. I instructed her she should be seen approximately 2 weeks after discharge. Objective - Vitals Vitals: Last Vital Signs Temp 37.5 C 03/03/20 06:48 Pulse 101 H 03/03/20 06:48 Resp 12 03/03/20 06:48 BP 122/46 03/03/20 06:48 Pulse Ox 95 03/03/20 06:48 - Abnormal Lab Findings Abnormal Lab Findings: Abnormal Lab Results 03/03/20 03/03/20 03/03/20 Range/Units 06:05 06:05 06:05 RBC 2.22 L (4.2-5.4) M/mm3 Hgb 6.7 L* (12.5-16.0) gm/dL Hct 20.2 L* (37.0-47.0) % Plt Count 145 L (150-450) K/mm3 Lymphocytes % 18.8 L (20-51) % Lymphocytes # 1.32 L (1.5-3.5) k/mm3 PT 21.3 H (9.1-10.7) Seconds INR (Anticoag Therapy) 2.22 H (0.92-1.08) INR Random Glucose 182 H (70-110) mg/dL Alkaline Phosphatase 36 L (50-170) U/L Albumin 2.9 L (3.4-5.0) gm/dl 03/03/20 Range/Units 12:10 RBC 2.16 L (4.2-5.4) M/mm3 Hgb 6.6 L* (12.5-16.0) gm/dL Hct 19.8 L* (37.0-47.0) % Plt Count 148 L (150-450) K/mm3 Lymphocytes % (20-51) % Lymphocytes # (1.5-3.5) k/mm3 PT (9.1-10.7) Seconds INR (Anticoag Therapy) (0.92-1.08) INR Random Glucose (70-110) mg/dL Alkaline Phosphatase (50-170) U/L Albumin (3.4-5.0) gm/dl Cauti Physician Documentation - Urinary Catheter Management Urethral (Alarcon) Urethral Indwelling: Yes Date of Insertion: 03/01/20 Time of Insertion: 13:58 Assessment/Plan - Problems/Diagnosis (1) Intertrochanteric fracture of left femur Problem: Acute Qualifiers: Encounter type: subsequent encounter Fracture type: closed Fracture alignment: displaced Fracture healing: with routine healing Qualified Code(s): S72.142D - Displaced intertrochanteric fracture of left femur, subsequent encounter for closed fracture with routine healing
[2020-03-03] MEDS: ENOXAPARIN SODIUM 40 MG/0.4 ML SYRG SC SCH (16:19)
[2020-03-03] MEDS ORDERED: WARFARIN SODIUM 2 MG TABLET PO SCH (17:00)
[2020-03-03] MEDS: LORATADINE 10 MG TABLET PO SCH (20:40)
[2020-03-03] MEDS: LOSARTAN POTASSIUM 50 MG TABLET PO SCH (20:41)
[2020-03-03] MEDS: SENNOSIDES/DOCUSATE SODIUM 1 TAB TABLET PO SCH (20:41)
[2020-03-03] MEDS: MAGNESIUM OXIDE 400 MG TABLET PO SCH (20:41)
[2020-03-03] MEDS: metFORMIN HCL 750 MG TAB.SR.24H PO SCH (20:41)
--- NOTE | 2020-03-03 23:33 | PN ---
Subjective - Date and Time Seen Date: 03/03/20 Time: 09:30 Subjective Narrative: Miranda reports doing well, although wears out easily. Discussed hemoglobin of 6.7. She agrees to blood transfusion as needed. She is slightly tachy. No nausea and pain is controlled. Objective - Vitals Vitals: Last Vital Signs Temp 37.1 C 03/03/20 22:54 Pulse 87 03/03/20 22:54 Resp 16 03/03/20 22:54 BP 134/45 03/03/20 22:54 Pulse Ox 95 03/03/20 22:54 - Abnormal Lab Findings Abnormal Lab Findings: Abnormal Lab Results 03/03/20 03/03/20 03/03/20 Range/Units 06:05 06:05 06:05 RBC 2.22 L (4.2-5.4) M/mm3 Hgb 6.7 L* (12.5-16.0) gm/dL Hct 20.2 L* (37.0-47.0) % Plt Count 145 L (150-450) K/mm3 Lymphocytes % 18.8 L (20-51) % Lymphocytes # 1.32 L (1.5-3.5) k/mm3 PT 21.3 H (9.1-10.7) Seconds INR (Anticoag Therapy) 2.22 H (0.92-1.08) INR Random Glucose 182 H (70-110) mg/dL Alkaline Phosphatase 36 L (50-170) U/L Albumin 2.9 L (3.4-5.0) gm/dl Crossmatch 03/03/20 03/03/20 Range/Units 12:00 12:10 RBC 2.16 L (4.2-5.4) M/mm3 Hgb 6.6 L* (12.5-16.0) gm/dL Hct 19.8 L* (37.0-47.0) % Plt Count 148 L (150-450) K/mm3 Lymphocytes % (20-51) % Lymphocytes # (1.5-3.5) k/mm3 PT (9.1-10.7) Seconds INR (Anticoag Therapy) (0.92-1.08) INR Random Glucose (70-110) mg/dL Alkaline Phosphatase (50-170) U/L Albumin (3.4-5.0) gm/dl Crossmatch See Detail - Exam Constitutional: Present: Alert, Oriented x3, Cooperative ENT Exam: Present: hearing grossly normal Respiratory: Present: lungs clear, normal breath sounds, no respiratory distress Cardiovascular/Chest: Present: no edema, no murmur, tachycardia Abdomen: Present: Normal bowel sounds, soft, nontender, nondistended, no rebound tenderness Skin Exam: Present: warm/dry, no cyanosis, pallor Cauti Physician Documentation - Urinary Catheter Management Urethral (Alarcon) Urethral Indwelling: Yes Date of Insertion: 03/01/20 Time of Insertion: 13:58 Assessment/Plan Plan Narrative: From ortho standpoint she appears to be doing well. Medically she has significant anemia of 6.7. She is mildly tachycardic but overall doesn't feel that bad. Decided to recheck hemogram at noon today to further decide on transfusion. That repeat hemoglobin was 6.6 so she was transfused 2 units. Will recheck hgb in AM. - Problems/Diagnosis (1) Acute blood loss anemia Problem: Acute (2) Intertrochanteric fracture of left femur Problem: Acute Qualifiers: Encounter type: subsequent encounter Fracture type: closed Fracture alignment: displaced Fracture healing: with routine healing Qualified Code(s): S72.142D - Displaced intertrochanteric fracture of left femur, subsequent encounter for closed fracture with routine healing
[2020-03-04] MEDS: HYDROcodone/ACETAMINOPHEN 1 EACH TABLET PO PRN ×4 (05:03→23:41)
[2020-03-04 06:40] LABS: Hematocrit 31.5 % (37.0-47.0); Hemoglobin 10.8 gm/dL (12.5-16.0); Mean Cell Volume 86.3 fl (78-100); Mean Corpuscular Hemoglobin 29.6 pg (27-31); Mean Corpuscular Hgb Conc 34.3 g/dl (32-36); Mean Platelet Volume 9.4 fl (8-12.5); Platelet Count 203 K/mm3 (150-450); Red Blood Count 3.65 M/mm3 (4.2-5.4); Red Cell Distribution Width 15.6 % (11.5-14.0); White Blood Count 9.4 K/mm3 (4.0-10.5)
[2020-03-04] MEDS: EXENATIDE 10 MCG SC SCH ×2 (06:47→16:16)
[2020-03-04 06:49] LABS: Prothrombin Time (Patient) 28.7 Seconds (9.1-10.7)
[2020-03-04 06:54] LABS: INR 3.03 INR (0.92-1.08)
[2020-03-04] MEDS: MONTELUKAST SODIUM 10 MG TABLET PO SCH (09:10)
[2020-03-04] MEDS: SENNOSIDES/DOCUSATE SODIUM 1 TAB TABLET PO SCH (20:52)
[2020-03-04] MEDS: metFORMIN HCL 750 MG TAB.SR.24H PO SCH (20:53)
[2020-03-04] MEDS: MAGNESIUM OXIDE 400 MG TABLET PO SCH (20:53)
[2020-03-04] MEDS: LOSARTAN POTASSIUM 50 MG TABLET PO SCH (20:53)
[2020-03-04] MEDS: LORATADINE 10 MG TABLET PO SCH (20:53)
--- NOTE | 2020-03-04 23:14 | PN ---
Subjective - Date and Time Seen Date: 03/04/20 Time: 11:30 Subjective Narrative: Miranda reports doing well and has no concerns. Pain is controlled. Eating well. Her hgb is 10.8 up from 6.6 yesterday. No fever, nausea, vomiting, or chills. Objective - Vitals Vitals: Last Vital Signs Temp 36.4 C 03/04/20 20:58 Pulse 87 03/04/20 20:58 Resp 16 03/04/20 20:58 BP 156/46 H 03/04/20 20:58 Pulse Ox 96 03/04/20 20:58 - Abnormal Lab Findings Abnormal Lab Findings: Abnormal Lab Results 03/03/20 03/04/20 03/04/20 Range/Units 12:00 06:35 06:35 RBC 3.65 L (4.2-5.4) M/mm3 Hgb 10.8 L (12.5-16.0) gm/dL Hct 31.5 L (37.0-47.0) % RDW 15.6 H (11.5-14.0) % PT 28.7 H (9.1-10.7) Seconds INR (Anticoag Therapy) 3.03 H (0.92-1.08) INR Crossmatch See Detail - Exam Constitutional: Present: Alert, Oriented x3, Cooperative ENT Exam: Present: hearing grossly normal Respiratory: Present: lungs clear, normal breath sounds Cardiovascular/Chest: Present: regular rate, rhythm, no murmur Abdomen: Present: Normal bowel sounds, soft, nontender, nondistended Skin Exam: Present: normal color, warm/dry, no cyanosis Cauti Physician Documentation - Urinary Catheter Management Urethral (Alarcon) Urethral Indwelling: Yes Date of Insertion: 03/01/20 Time of Insertion: 13:58 Assessment/Plan Plan Narrative: Medically doing well, no concerns. Ok with discharge when ok with therapy and ortho. - Problems/Diagnosis (1) Acute blood loss anemia Problem: Acute (2) Intertrochanteric fracture of left femur Problem: Acute Qualifiers: Encounter type: subsequent encounter Fracture type: closed Fracture alignment: displaced Fracture healing: with routine healing Qualified Code(s): S72.142D - Displaced intertrochanteric fracture of left femur, subsequent encounter for closed fracture with routine healing
[2020-03-05] MEDS: HYDROcodone/ACETAMINOPHEN 1 EACH TABLET PO PRN ×3 (05:50→19:18)
[2020-03-05] MEDS: EXENATIDE 10 MCG SC SCH ×2 (06:55→17:02)
[2020-03-05 07:15] LABS: Prothrombin Time (Patient) 27.6 Seconds (9.1-10.7)
[2020-03-05 07:17] LABS: INR 2.9 INR (0.92-1.08)
[2020-03-05] MEDS: MONTELUKAST SODIUM 10 MG TABLET PO SCH (09:11)
[2020-03-05 09:46] LABS: Hematocrit 28.6 % (37.0-47.0); Hemoglobin 9.5 gm/dL (12.5-16.0); Mean Cell Volume 88.5 fl (78-100); Mean Corpuscular Hemoglobin 29.4 pg (27-31); Mean Corpuscular Hgb Conc 33.2 g/dl (32-36); Mean Platelet Volume 9.2 fl (8-12.5); Neutrophil # 3.3 K/mm3 (1.3-6.0); Neutrophil % 48.8 % (42-75.0); Platelet Count 207 K/mm3 (150-450); Red Blood Count 3.23 M/mm3 (4.2-5.4); Red Cell Distribution Width 15.9 % (11.5-14.0); White Blood Count 6.8 K/mm3 (4.0-10.5)
[2020-03-05 09:52] LABS: Albumin * 2.9 gm/dl (3.4-5.0); Anion Gap 8.5 mmol/L (6.8-13.8); BUN/Creatinine Ratio 17.2 (9.0-21.6); Bilirubin, Total 0.5 mg/dL (0.0-1.1); Ca. Corrected For Albumin 9.3 mg/dL (8.4-10.2); Calcium * 8.7 mg/dL (7.9-10.9); Carbon Dioxide 32.4 mmol/L (24-32.6); Potassium 3.9 mmol/L (3.4-4.6); Total Protein 6.6 gm/dL (6.2-8.2)
--- NOTE | 2020-03-05 10:52 | PN ---
Subjective - Date and Time Seen Date: 03/05/20 Time: 08:46 Subjective Narrative: She states she is doing well and has no complaints. Denies shortness of breath, chest pain abdominal pain. Last bowel movement was 2 days ago. Objective - Review of Systems Generalized/Overall Review: Denies: Chills, Fever Respiratory: Denies: Shortness of Breath Cardiac: Denies: Chest Pain Abdominal: Denies: Abdominal Pain Musculoskeletal Complaints: Reports: Joint Pain - Left hip Misc: All systems neg except as marked - Vitals Vitals: Last Vital Signs Temp 36.6 C 03/05/20 06:25 Pulse 88 03/05/20 06:25 Resp 16 03/05/20 06:25 BP 146/69 03/05/20 06:25 Pulse Ox 97 03/05/20 06:25 - Abnormal Lab Findings Abnormal Lab Findings: Abnormal Lab Results 03/05/20 03/05/20 03/05/20 Range/Units 06:25 06:25 06:30 RBC 3.23 L (4.2-5.4) M/mm3 Hgb 9.5 L (12.5-16.0) gm/dL Hct 28.6 L (37.0-47.0) % RDW 15.9 H (11.5-14.0) % Immature Gran % (Auto) 0.70 H (0.001-0.429) % Immature Gran # (Auto) 0.05 H (0.000-0.0310) K/mm3 Monocytes % 10.9 H (0.0-9) % Eosinophils % 4.7 H (0.0-3.0) % PT 27.6 H (9.1-10.7) Seconds INR (Anticoag Therapy) 2.90 H (0.92-1.08) INR Random Glucose 150 H (70-110) mg/dL Alkaline Phosphatase 47 L (50-170) U/L Albumin 2.9 L (3.4-5.0) gm/dl - Exam Constitutional: Present: Alert, Cooperative, Well developed, Well nourished, No distress, Elderly ENT Exam: Present: hearing grossly normal Neck: Present: non-tender, supple. Absent: lymphadenopathy (R), lymphadenopathy (L) Respiratory: Present: lungs clear, no accessory muscle use, No wheezing. Absent: crackles, rhonchi Cardiovascular/Chest: Present: normal peripheral pulses, regular rate, rhythm, no edema, no murmur Abdomen: Present: Normal bowel sounds, soft, nontender Extremity: Present: no pedal edema Skin Exam: Present: normal color, warm/dry Neurologic: Present: alert, normal mood/affect Appearance: Present: appropriate appearance, appropriate insight Eye contact: Present: cooperative Thoughts: Present: normal mood /affect Cauti Physician Documentation - Urinary Catheter Management Urethral (Alarcon) Urethral Indwelling: Yes Date of Insertion: 03/01/20 Time of Insertion: 13:58 Assessment/Plan Plan Narrative: 69-year-old female with a past medical history of seasonal asthma, type 2 diabetes mellitus, pernicious anemia, hyperlipidemia, hypertension presents status post fall with left hip pain. She was found to have a comminuted intertrochanteric fracture of the left hip. Orthopedic was consulted and will take her to the right operating room tomorrow. She denies chest pain, shortness of breath, abdominal pain, palpitations or dizziness. She is status post closed reduction, cephalo-medullary fixation of her left intertrochanteric femur on March 01, 2020. She will need to continue with DVT prophylaxis with anticoagulation for 6 weeks. She will need inpatient rehab and we are in the process of looking for placement. She is feeling well today over the weekend and her hemoglobin dropped to 6.6 on March 03, 2020. She received 2 units of PRBCs. Hemoglobin this morning is stable at 9.5. She is awaiting placement to residential facility for rehab. Plan #1 continue with pain management with [facility] #2 CBC and CMP in the morning #3 Continue her home medications #4 continue with warfarin for DVT prophylaxis for 6 weeks until April 12, 2020. - Problems/Diagnosis (1) Intertrochanteric fracture of left femur Problem: Acute Qualifiers: Encounter type: subsequent encounter Fracture type: closed Fracture alignment: displaced Fracture healing: with routine healing Qualified Code(s): S72.142D - Displaced intertrochanteric fracture of left femur, subsequent encounter for closed fracture with routine healing (2) Diabetes mellitus type 2 in nonobese Problem: Chronic (3) Hypertension Problem: Chronic (4) Hyperlipidemia Problem: Chronic (5) Asthma Problem: Chronic
--- NOTE | 2020-03-05 15:06 | PN ---
Subjective - Date and Time Seen Date: 03/05/20 Time: 10:30 Subjective Narrative: Subjective: Reports some difficulty with ambulation although she is making some progress. Pain improving some. Tolerating by mouth intake. Denies any nausea or vomiting. Denies calf pain. Slept well. Physical exam: Alert and oriented to person, place and time Left lower extremity: Palpable dorsalis pedis pulse. Sensation grossly intact to light touch. Dressings clean and dry. Able to flex and extend ankle and toes. No excessive drainage. Calf and thigh are soft and nontender. Assessment: Postop day 4 status post left hip cephalo-medullary nail for intertrochanteric femur fracture. Plan: Continue with physical and occupational therapy weightbearing as tolerated. Continue with anticoagulation -she will need 6 weeks of DVT prophylaxis. Pain control with goal to rely on oral medications. Continue bowel regimen. Will need 6 weeks with walker or assitive device to protect joint while ambulating during the recovery process. Discharge planning -okay to transfer to nursing facility once medically stable. Per her request she wants to follow-up with a local doctor near her home. I instructed her she should be seen approximately 2 weeks after discharge. Objective - Vitals Vitals: Last Vital Signs Temp 36.6 C 03/05/20 14:16 Pulse 94 03/05/20 14:16 Resp 17 03/05/20 14:16 BP 138/54 03/05/20 14:16 Pulse Ox 96 03/05/20 14:16 - Abnormal Lab Findings Abnormal Lab Findings: Abnormal Lab Results 03/05/20 03/05/20 03/05/20 Range/Units 06:25 06:25 06:30 RBC 3.23 L (4.2-5.4) M/mm3 Hgb 9.5 L (12.5-16.0) gm/dL Hct 28.6 L (37.0-47.0) % RDW 15.9 H (11.5-14.0) % Immature Gran % (Auto) 0.70 H (0.001-0.429) % Immature Gran # (Auto) 0.05 H (0.000-0.0310) K/mm3 Monocytes % 10.9 H (0.0-9) % Eosinophils % 4.7 H (0.0-3.0) % PT 27.6 H (9.1-10.7) Seconds INR (Anticoag Therapy) 2.90 H (0.92-1.08) INR Random Glucose 150 H (70-110) mg/dL Alkaline Phosphatase 47 L (50-170) U/L Albumin 2.9 L (3.4-5.0) gm/dl Cauti Physician Documentation - Urinary Catheter Management Urethral (Alarcon) Urethral Indwelling: Yes Date of Insertion: 03/01/20 Time of Insertion: 13:58 Assessment/Plan - Problems/Diagnosis (1) Intertrochanteric fracture of left femur Problem: Acute Qualifiers: Encounter type: subsequent encounter Fracture type: closed Fracture alignment: displaced Fracture healing: with routine healing Qualified Code(s): S72.142D - Displaced intertrochanteric fracture of left femur, s ubsequent encounter for closed fracture with routine healing
[2020-03-05] MEDS ORDERED: WARFARIN SODIUM 2 MG TABLET PO SCH (17:00)
[2020-03-05] MEDS ORDERED: WARFARIN SODIUM 1 TAB TAB PO SCH (17:00)
[2020-03-05] MEDS: MAGNESIUM HYDROXIDE 30 ML UDC PO PRN (19:19)
[2020-03-05] MEDS: MAGNESIUM OXIDE 400 MG TABLET PO SCH (20:28)
[2020-03-05] MEDS: LOSARTAN POTASSIUM 50 MG TABLET PO SCH (20:28)
[2020-03-05] MEDS: LORATADINE 10 MG TABLET PO SCH (20:28)
[2020-03-05] MEDS: SENNOSIDES/DOCUSATE SODIUM 1 TAB TABLET PO SCH (20:29)
[2020-03-05] MEDS: metFORMIN HCL 750 MG TAB.SR.24H PO SCH (20:29)
[2020-03-06] MEDS: HYDROcodone/ACETAMINOPHEN 1 EACH TABLET PO PRN ×2 (03:32→09:58)
[2020-03-06 06:48] LABS: Hematocrit 30.6 % (37.0-47.0); Hemoglobin 10.2 gm/dL (12.5-16.0); Mean Cell Volume 89.5 fl (78-100); Mean Corpuscular Hemoglobin 29.8 pg (27-31); Mean Corpuscular Hgb Conc 33.3 g/dl (32-36); Neutrophil # 4.7 K/mm3 (1.3-6.0); Neutrophil % 61.2 % (42-75.0); Platelet Count 230 K/mm3 (150-450); Red Blood Count 3.42 M/mm3 (4.2-5.4); Red Cell Distribution Width 15.1 % (11.5-14.0); White Blood Count 7.7 K/mm3 (4.0-10.5)
[2020-03-06 06:59] LABS: INR 2.95 INR (0.92-1.08)
[2020-03-06 07:01] LABS: Anion Gap 11.3 mmol/L (6.8-13.8); BUN/Creatinine Ratio 22.2 (9.0-21.6); Bilirubin, Total 0.7 mg/dL (0.0-1.1); Ca. Corrected For Albumin 9.3 mg/dL (8.4-10.2); Calcium * 8.8 mg/dL (7.9-10.9); Potassium 4.3 mmol/L (3.4-4.6)
[2020-03-06] MEDS: EXENATIDE 10 MCG SC SCH (07:16)
[2020-03-06] MEDS: MONTELUKAST SODIUM 10 MG TABLET PO SCH (08:43)
--- NOTE | 2020-03-06 09:11 | DS ---
(1) Intertrochanteric fracture of left femur Problem: Acute Qualifiers: Encounter type: subsequent encounter Fracture type: closed Fracture alignment: displaced Fracture healing: with routine healing Qualified Code(s): S72.142D - Displaced intertrochanteric fracture of left femur, subsequent encounter for closed fracture with routine healing (2) Diabetes mellitus type 2 in nonobese Problem: Chronic (3) Hypertension Problem: Chronic (4) Hyperlipidemia Problem: Chronic (5) Asthma Problem: Chronic Hospital Course: 69-year-old female with a past medical history of seasonal asthma, type 2 diabetes mellitus, pernicious anemia, hyperlipidemia, hypertension presents status post fall with left hip pain. She was found to have a comminuted intertrochanteric fracture of the left hip. Orthopedic was consulted and will take her to the right operating room tomorrow. She denies chest pain, shortness of breath, abdominal pain, palpitations or dizziness. She is status post closed reduction, cephalo-medullary fixation of her left intertrochanteric femur on March 01, 2020. She will need to continue with DVT prophylaxis with anticoagulation for 6 weeks. She will need inpatient rehab and we are in the process of looking for placement. Goal INR is 2-3. She is feeling well today over the weekend and her hemoglobin dropped to 6.6 on March 03, 2020. She received 2 units of PRBCs. Hemoglobin this morning is stable at 9.5. [facility]. He is stable and doing well today and will be discharged to [facility]. Procedures Performed: none Results and Findings: Lab Pending Results 02/29/20 13:35: WBC 9.2, RBC 3.90 L, Hgb 11.7 L, Hct 36.1 L, MCV 92.6, MCH 30.0, MCHC 32.4, RDW 13.1, Plt Count 259, MPV 8.9, Immature Gran % (Auto) 0.70 H, Immature Gran # (Auto) 0.06 H, Neutrophils % 76.3 H, Lymphocytes % 16.6 L, Monocytes % 5.8, Eosinophils % 0.3, Basophils % 0.3, Nucleated RBC % 0.0, Neutrophils # 7.0 H, Lymphocytes # 1.52, Monocytes # 0.5, Eosinophils # 0.0, Absolute Basophils 0.0 02/29/20 13:35: Sodium 139, Plasma Sodium 139, Potassium 4.1, Chloride 105, Carbon Dioxide 27.4, Anion Gap 10.7, BUN 30 H, Creatinine 0.95, Est GFR (Non-Af Amer) 62, BUN/Creatinine Ratio 31.6 H, Random Glucose 124 H, Calcium 9.9, Calcium Adj for Albumin 9.5, Total Bilirubin 0.3, AST 27, ALT 26, Alkaline Phosphatase 60, Total Protein 7.8, Albumin 4.1 02/29/20 14:21: SARS-CoV-2 (PCR) Not detected 03/01/20 06:00: PT 10.4, INR (Anticoag Therapy) 1.05 03/01/20 06:40: WBC 8.6, RBC 3.84 L, Hgb 11.5 L, Hct 35.0 L, MCV 91.1, MCH 29.9, MCHC 32.9, RDW 12.9, Plt Count 239, MPV 8.8, Immature Gran % (Auto) 0.50 H, Immature Gran # (Auto) 0.04 H, Neutrophils % 68.6, Lymphocytes % 21.8, Monocytes % 6.0, Eosinophils % 2.6, Basophils % 0.5, Nucleated RBC % 0.0, Neutrophils # 5.9, Lymphocytes # 1.88, Monocytes # 0.5, Eosinophils # 0.2, Absolute Basophils 0.0 03/01/20 06:40: Sodium 135, Plasma Sodium 136, Potassium 3.8, Chloride 99, Carb on Dioxide 28.0, Anion Gap 11.8, BUN 19, Creatinine 0.87, Est GFR (Non-Af Amer) 69, BUN/Creatinine Ratio 21.8 H, Random Glucose 144 H, Calcium 9.0, Calcium Adj for Albumin 8.9, Total Bilirubin 0.7, AST 73 H, ALT 81 H, Alkaline Phosphatase 57, Total Protein 7.3, Albumin 3.7 03/02/20 06:00: WBC 7.3, RBC 2.63 L, Hgb 8.1 L, Hct 24.7 L, MCV 93.9, MCH 30.8, MCHC 32.8, RDW 12.9, Plt Count 133 L, MPV 9.8 03/02/20 06:30: Sodium 136, Plasma Sodium 137, Potassium 4.0, Chloride 100, Carbon Dioxide 28.9, Anion Gap 11.1, BUN 16, Creatinine 0.85, Est GFR (Non-Af Amer) 70, BUN/Creatinine Ratio 18.8, Random Glucose 145 H, Calcium 8.1 03/02/20 06:30: PT 12.8 H, INR (Anticoag Therapy) 1.31 H 03/03/20 06:05: PT 21.3 H, INR (Anticoag Therapy) 2.22 H 03/03/20 06:05: WBC 7.0, RBC 2.22 L, Hgb 6.7 L*, Hct 20.2 L*, MCV 91.0, MCH 30.2, MCHC 33.2, RDW 13.1, Plt Count 145 L, MPV 9.3, Immature Gran % (Auto) 0.40, Immature Gran # (Auto) 0.03, Neutrophils % 70.5, Lymphocytes % 18.8 L, Monocytes % 7.8, Eosinophils % 2.4, Basophils % 0.1, Nucleated RBC % 0.0, Neutrophils # 5.0, Lymphocytes # 1.32 L, Monocytes # 0.6, Eosinophils # 0.2, Absolute Basophils 0.0 03/03/20 06:05: Sodium 137, Plasma Sodium 138, Potassium 4.0, Chloride 101, Carbon Dioxide 30.0, Anion Gap 10.0, BUN 16, Creatinine 0.86, Est GFR (Non-Af Amer) 70, BUN/Creatinine Ratio 18.6, Random Glucose 182 H, Calcium 8.4, Calcium Adj for Albumin 9.0, Total Bilirubin 0.4, AST 26, ALT 29, Alkaline Phosphatase 36 L, Total Protein 6.4, Albumin 2.9 L 03/03/20 12:00: Blood Type AB Positive, Antibody Screen Negative, Crossmatch See Detail 03/03/20 12:10: WBC 7.5, RBC 2.16 L, Hgb 6.6 L*, Hct 19.8 L*, MCV 91.7, MCH 30.6, MCHC 33.3, RDW 12.9, Plt Count 148 L, MPV 9.7 03/04/20 06:35: PT 28.7 H, INR (Anticoag Therapy) 3.03 H 03/04/20 06:35: WBC 9.4 D, RBC 3.65 L, Hgb 10.8 L, Hct 31.5 L, MCV 86.3, MCH 29.6, MCHC 34.3, RDW 15.6 H, Plt Count 203, MPV 9.4 03/05/20 06:25: WBC 6.8 D, RBC 3.23 L, Hgb 9.5 L, Hct 28.6 L, MCV 88.5, MCH 29.4, MCHC 33.2, RDW 15.9 H, Plt Count 207, MPV 9.2, Immature Gran % (Auto) 0.70 H, Immature Gran # (Auto) 0.05 H, Neutrophils % 48.8, Lymphocytes % 34.2, Monocytes % 10.9 H, Eosinophils % 4.7 H, Basophils % 0.7, Nucleated RBC % 0.0, Neutrophils # 3.3, Lymphocytes # 2.31, Monocytes # 0.7, Eosinophils # 0.3, Absolute Basophils 0.1 03/05/20 06:25: Sodium 139, Plasma Sodium 140, Potassium 3.9, Chloride 102, Carbon Dioxide 32.4, Anion Gap 8.5, BUN 15, Creatinine 0.87, Est GFR (Non-Af Amer) 69, BUN/Creatinine Ratio 17.2, Random Glucose 150 H, Calcium 8.7, Calcium Adj for Albumin 9.3, Total Bilirubin 0.5, AST 38, ALT 35, Alkaline Phosphatase 47 L, Total Protein 6.6, Albumin 2.9 L 03/05/20 06:30: PT 27.6 H, INR (Anticoag Therapy) 2.90 H 03/06/20 06:15: WBC 7.7, RBC 3.42 L, Hgb 10.2 L, Hct 30.6 L, MCV 89.5, MCH 29.8, MCHC 33.3, RDW 15.1 H, Plt Count 230, MPV 9.0, Immature Gran % (Auto) 0.90 H, Immature Gran # (Auto) 0.07 H, Neutrophils % 61.2, Lymphocytes % 24.7, Monocytes % 9.6 H, Eosinophils % 3.1 H, Basophils % 0.5, Nucleated RBC % 0.0, Neutrophils # 4.7, Lymphocytes # 1.90, Monocytes # 0.7, Eosinophils # 0.2, Absolute Basophils 0.0 03/06/20 06:15: Sodium 137, Plasma Sodium 138, Potassium 4.3, Chloride 100, Carbon Dioxide 30.0, Anion Gap 11.3, BUN 18, Creatinine 0.81, Est GFR (Non-Af Amer) 75, BUN/Creatinine Ratio 22.2 H, Random Glucose 177 H, Calcium 8.8, Calcium Adj for Albumin 9.3, Total Bilirubin 0.7, AST 47, ALT 44, Alkaline Ph osphatase 54, Total Protein 7.0, Albumin 3.0 L 03/06/20 06:15: PT 28.0 H, INR (Anticoag Therapy) 2.95 H Discharge Location: Other - [facility] Disposition: SNF Condition: Stable Level of Care: SNF Discharge Activity: Weight bearing Discharge Diet: Consistent carbs Alf Therapy: Physical Therapy, Occupation Therapy Additional Patient Instructions (free text): Going to [facility], SNF for PT and OT to evaluate and treat. Ortho plan: Continue with physical and occupational therapy weightbearing as tolerated. Continue with anticoagulation -she will need 6 weeks of DVT prophylaxis. Pain control with goal to rely on oral medications. Continue bowel regimen. Will need 6 weeks with walker or assitive device to protect joint while ambulating during the recovery process. Per her request she wants to follow-up with a local doctor near her home. I instructed her she should be seen approximately 2 weeks after discharge. Check INR every 2-3 days until stable then every week, goal is 2-3 Prescriptions (Any new or edited meds): Warfarin Sodium [Coumadin] 2 mg PO DAILY@1700 #20 tab Transmission Status: Pending to [facility] HYDROcodone/ACETAMINOPHEN [[place] 5-325] 2 ea PO Q6H PRN #40 tab PRN Reason: Pain Transmission Status: Re[facility] by [facility] Sennosides/Docusate Sodium [Senokot-S] 2 tab PO HS #28 tab Transmission Status: Pending to [facility] Complete Home Medications List: Complete Home Medication List: Acetaminophen [Tylenol] 1,000 mg PO Q6H PRN 02/29/20 Albuterol Sulfate [Albuterol Sulfate Hfa] 8.5 gm INHALATION PRN PRN 02/29/20 Aspirin 81 mg PO DAILY 02/29/20 Cyanocobalamin [Vitamin B-12] 1,000 mcg IJ . MONTHLY 02/29/20 Denosumab [Prolia] 60 mg SQ .6 MONTHS 02/29/20 Exenatide [Byetta] 10 mcg SQ BID 02/29/20 Fexofenadine HCl [Avril Allergy] 180 mg PO 199902/29/20 Losartan Potassium 100 mg PO 199902/29/20 Magnesium Oxide [Magnesium] 500 mg PO 199902/29/20 Montelukast Sodium [Singulair] 10 mg PO DAILY 02/29/20 metFORMIN HCL [Metformin HCl ER] 750 mg PO 199902/29/20 HYDROcodone/ACETAMINOPHEN [[place] 5-325] 2 ea PO Q6H PRN #40 tab 03/06/20 Sennosides/Docusate Sodium [Senokot-S] 2 tab PO HS #28 tab 03/06/20 Warfarin Sodium [Coumadin] 2 mg PO DAILY@1700 #20 tab 03/06/20
[2020-03-06 10:22] VITALS: BP 139/82
== END 2020-03-06 10:35 | DRG 481 ==
LOC: ER 12:09 → MS 13:26
PROVIDERS: ADMIT Internal Medicine; ATTEND Internal Medicine
CPT/HCPCS: 36415; 71010; 71045; 73030; 73502; 80048; 80053; 85025; 85027; 85610; 86850; 90471; 90715; 93005; 96374; 96375; 96376; 97110; 97116; 97161; 97165; 97530; 97535; 99284; 99285; J2405; P9016